=== PATIENT | female | born 1990 ===

== ENCOUNTER 2017-11-19 14:24 | Emergency (ER) | payer OTHER ==
[2017-11-19 14:40] VITALS: BP 116/65; PULSE 71; RESP 18; TEMP 98; O2SAT 100
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
== END 2017-11-19 16:09 | disposition home or self-care (01) ==
LOC: H.ER 14:24
DX: S09.90XA Unspecified injury of head, initial encounter (principal); V43.52XA Car driver injured in collision with other type car in traffic accident, initial encounter; Y92.410 Unspecified street and highway as the place of occurrence of the external cause

== ENCOUNTER 2018-09-07 22:51 | Emergency (ER) | payer BC, OTHER ==
[2018-09-07 23:09] VITALS: RESP 16; TEMP 97.8; O2SAT 100
--- NOTE | 2018-09-07 23:27 | ED PDOC ---
HPI: Female Pain Time Seen by Provider: 09/07/18 23:09 Chief Complaint (Nursing): Female Genitourinary History Per: Patient Additional Complaint(s): Pt. states on Sunday she developed dysuria. She was seen in "[facility]" and was dx with a UTI and prescribed Nitrofurantoin. Pt. states today she developed L sided flank pain and she is now concerned about having a kidney infection. Pt. states she has taken a total of 2 doses of the antibiotic. Denies fever, chills, N/V, abdominal pain, pelvic pain, trauma, chest pain, SOB, incontinence, hx of previous kidney infections, rash. Past Medical History Reviewed: Historical Data, Nursing Documentation, Vital Signs Vital Signs: Last Vital Signs Temp 97.8 F 09/07/18 23:06 Pulse 86 09/07/18 23:06 Resp 16 09/07/18 23:06 BP 107/71 09/07/18 23:06 Pulse Ox 100 09/07/18 23:06 Primary Care Provider: DoctorNeha - Medical History PMH: Denies: Diabetes - Surgical History Surgical History: No Surg Hx - Family History Family History: States: No Known Family Hx - Allergies Allergies/Adverse Reactions: Allergies Allergy/AdvReac Type Severity Reaction Status Date / Time No Known Allergies Allergy Verified 11/19/17 14:44 Review of Systems ROS Statement: Except As Marked, All Systems Reviewed And Found Negative Genitourinary Female: Positive for: Dysuria Musculoskeletal: Positive for: Back Pain Physical Exam - Physical Exam Appears: Positive for: Well, Non-toxic, No Acute Distress Skin: Positive for: Normal Color, Warm. Negative for: Rash Eye Exam: Positive for: Normal appearance Cardiovascular/Chest: Positive for: Regular Rate, Rhythm Respiratory: Positive for: Normal Breath Sounds. Negative for: Respiratory Distress Gastrointestinal/Abdominal: Positive for: Soft. Negative for: Tenderness Back: Positive for: Normal Inspection. Negative for: L CVA Tenderness, R CVA Tenderness Neurological/Psych: Positive for: Awake, Alert, Oriented (x3) - ECG O2 Sat by Pulse Oximetry: 100 - Progress ED Course And Treament: Labs, UA ordered. Pt. offered CT but refused as she a CT of head on 11/2017 and is concerned about radiation. States if her WBC is elevated then she will agree to getting the CT. Disposition - Clinical Impression Clinical Impression: Urinary tract infection, Flank pain - Patient ED Disposition Is Patient to be Admitted: Transfer of Care (Signed out to Jeffrey DAVISON pending labs and final disposition) - Disposition Disposition Time: 00:00 Forms: [employer] (Algerian)
[2018-09-07 23:43] LABS: BASO % 0.3 % (0.0-2.0); EOS # 0.2 K/uL (0.0-0.7); EOS % 2.8 % (0.0-4.0); HEMOGLOBIN 12.5 g/dL (12.0-16.0); LYMPH # 2.8 K/uL (1.0-4.3); LYMPH % 35.1 % (20.0-40.0); MEAN CELL VOLUME 80.6 fl (81.0-99.0); MEAN CORPUSCULAR HGB CONC 32.2 g/dL (33.0-37.0); MEAN PLATELET VOLUME 8.6 fl (7.2-11.7); MONO # 0.5 K/uL (0.0-0.8); MONO % 6.3 % (0.0-10.0); NEUT # 4.4 K/uL (1.8-7.0); NEUT % 55.5 % (50.0-75.0); NRBC % 0.1 % (0.0-0.0); RBC 4.82 Mil/uL (3.80-5.20); WHITE BLOOD COUNT 7.9 K/uL (4.8-10.8)
[2018-09-07 23:54] LABS: SQUAMOUS EPITHIAL 1 /hpf (0-5); URINE BACTERIA FEW (<OCC); URINE BILIRUBIN NEGATIVE (NEGATIVE); URINE BLOOD SMALL (NEGATIVE); URINE CLARITY SLIGHTY-CLOUDY (Clear); URINE COLOR STRAW (YELLOW); URINE GLUCOSE (UA) NEG (NEGATIVE); URINE LEUKOCYTE ESTERASE SMALL Leu/uL (Negative); URINE PROTEIN NEGATIVE (NEGATIVE); URINE UROBILINOGEN 0.2-1.0 mg/dL (0.2-1.0)
[2018-09-07 23:55] LABS: ALB/GLOB RATIO 1.3 (1.0-2.1); ALBUMIN 4.5 g/dL (3.5-5.0); ALT/SGPT 95 U/L (9-52); AST/SGOT 50 U/L (14-36); BLOOD UREA NITROGEN 14 mg/dl (7-17); GFR NON-AFRICAN AMERICAN > 60
--- NOTE | 2018-09-08 00:42 | ED PDOC ---
- Laboratory Results Result Diagrams: 09/07/18 23:19 09/07/18 23:19 Lab Results: Total Bilirubin 0.3 mg/dl (0.2-1.3) 09/07/18 23: AST 50 U/L (14-36) H 09/07/18 23: ALT 95 U/L (9-52) H 09/07/18 23: Alkaline Phosphatase 90 U/L (38-126) 09/07/18 23: Total Protein 7.9 G/DL (6.3-8.2) 09/07/18 23: Albumin 4.5 g/dL (3.5-5.0) 09/07/18 23: Globulin 3.5 gm/dL (2.2-3.9) 09/07/18 23: Albumin/Globulin Ratio 1.3 (1.0-2.1) 09/07/18 23:19 Urine Color Straw (YELLOW) 09/07/18 23: Urine Clarity Slighty-cloudy (Clear) 09/07/18 23: Urine pH 6.0 (5.0-8.0) 09/07/18 23: Ur Specific [place] 1.005 (1.003-1.030) 09/07/18 23: Urine Protein Negative mg/dL (NEGATIVE) 09/07/18: Urine Glucose (UA) Neg mg/dL (NEGATIVE) 09/07/18 23: Urine Ketones Negative mg/dL (NEGATIVE) 09/07/18 23: Urine Blood Small (NEGATIVE) 09/07/18 23: Urine Nitrate Negative (NEGATIVE) 09/07/18: Urine Bilirubin Negative (NEGATIVE) 09/07/18 23: Urine Urobilinogen 0.2-1.0 mg/dL (0.2-1.0) 09/07/18 23: Ur Leukocyte Esterase Small Mihai/uL (Negative) 09/07/18 23: Urine Microscopic WBC 1 /hpf (0-5) 09/07/18 23:19 Ur Squamous Epith Cells 1 /hpf (0-5) 09/07/18 23:19 Urine Bacteria Few (<OCC) H 09/07/18 23: - ECG O2 Sat by Pulse Oximetry: 100 Disposition - Clinical Impression Clinical Impression: Urinary tract infection, Flank pain - POA Present On Arrival: None - Disposition Disposition: Routine/Home Disposition Time: 00:41 Condition: GOOD Instructions: Urinary Tract Infections in Adults Forms: [employer] (Taiwanese)
[2018-09-08 00:50] VITALS: BP 114/67; PULSE 92
== END 2018-09-08 00:48 | disposition home or self-care (01) ==
LOC: H.ER 22:51
DX: N39.0 Urinary tract infection, site not specified (principal); R10.9 Unspecified abdominal pain